=== PATIENT | female | born 1945 | race Caucasian/White ===

== ENCOUNTER 2017-12-03 13:30 | Inpatient (IN) | payer MEDICARE ==
[2017-12-04] MEDS ORDERED: VANCOMYCIN HCL 1,000 MG in DEXTROSE 5 % IN WATER 250 ML IVPB ONE ×2 (12:30)
[2017-12-04] MEDS ORDERED: FAMOTIDINE 20MG TABLET PO ONE (12:30)
[2017-12-04] MEDS ORDERED: METOCLOPRAMIDE 10 MG TABLET PO ONE (12:30)
[2017-12-04] MEDS ORDERED: ACETAMINOPHEN 1,000 MG/100 ML BTL IV ONE (12:30)
[2017-12-04] MEDS ORDERED: MECLIZINE 25 MG TABLET PO ONE (12:30)
[2017-12-04] MEDS ORDERED: CELECOXIB 100 MG CAPSULE PO ONE (12:30)
[2017-12-14] MEDS ORDERED: MECLIZINE 25 MG TABLET PO ONE (06:00)
[2017-12-14] MEDS ORDERED: FAMOTIDINE 20MG TABLET PO ONE (06:00)
[2017-12-14] MEDS ORDERED: VANCOMYCIN HCL 1,000 MG in DEXTROSE 5 % IN WATER 250 ML IVPB ONE ×2 (06:00)
[2017-12-14] MEDS ORDERED: METOCLOPRAMIDE 10 MG TABLET PO ONE (06:00)
[2017-12-14] MEDS ORDERED: CELECOXIB 100 MG CAPSULE PO ONE (06:00)
[2017-12-14] MEDS ORDERED: ACETAMINOPHEN 1,000 MG/100 ML BTL IV ONE (06:00)
[2017-12-14 09:18] LABS: ABO GROUP O; ANTIBODY SCREEN NEGATIVE (NEGATIVE); RH TYPE POSITIVE
[2017-12-14] MEDS ORDERED: DIPHENHYDRAMINE HCL 25 MG CAPSULE PO PRN (10:03)
[2017-12-14] MEDS ORDERED: AL HYDROX/MAG HYDROX 30ML UD PO PRN (10:03)
[2017-12-14] MEDS ORDERED: TRAMADOL HCL 50 MG TABLET PO PRN ×2 (10:03)
[2017-12-14] MEDS ORDERED: PROMETHAZINE HCL 12.5 MG in 0.9 % SODIUM CHLORIDE 100ML 50 ML IVPB PRN (10:03)
[2017-12-14] MEDS ORDERED: HYDROMORPHONE HCL 2 MG/ML VIAL IM PRN ×2 (10:03)
[2017-12-14] MEDS ORDERED: METOCLOPRAMIDE HCL 10 MG/2 ML VIAL IVP PRN (10:03)
[2017-12-14] MEDS ORDERED: HYDROCODONE/APAP 7.5/325MG TABLET PO PRN (10:03)
[2017-12-14] MEDS ORDERED: ACETAMINOPHEN W/ CODEINE 300MG/30MG TABLET PO PRN ×2 (10:03)
[2017-12-14] MEDS ORDERED: ACETAMINOPHEN 325 MG TAB PO PRN (10:03)
[2017-12-14] MEDS ORDERED: ONDANSETRON HCL IV 4 MG/2 ML VIAL IVP PRN (10:03)
[2017-12-14] MEDS ORDERED: HYDROCODONE/APAP 5/325MG TABLET PO PRN ×2 (10:03)
[2017-12-14] MEDS ORDERED: ACETAMINOPHEN W/ CODEINE 300MG/60MG TABLET PO PRN ×2 (10:03)
[2017-12-14] MEDS ORDERED: ZOLPIDEM TARTRATE 5 MG TABLET PO PRN (10:03)
[2017-12-14] MEDS ORDERED: NALOXONE 0.4 MG/1 ML VIAL IVP PRN (10:03)
[2017-12-14] MEDS ORDERED: MAGNESIUM HYDROXIDE 30 ML UDC PO PRN (10:03)
[2017-12-14] MEDS ORDERED: BISACODYL 10 MG SUPP RC PRN (10:03)
[2017-12-14] MEDS ORDERED: KETOROLAC 30 MG/ML VIAL IVP PRN ×2 (10:03)
[2017-12-14] MEDS ORDERED: BUPIVACAINE 0.5% W/EPI MPF 30 ML VIAL IVP ONE (14:00)
[2017-12-14] MEDS ORDERED: MIDAZOLAM HCL 2MG/2ML VIAL IV ONE (14:00)
[2017-12-14] MEDS ORDERED: GLYCOPYRROLATE 0.2 MG/ML ML IV ONE (14:00)
[2017-12-14] MEDS ORDERED: ONDANSETRON HCL IV 4 MG/2 ML VIAL IVP ONE ×2 (14:00→18:00)
[2017-12-14] MEDS ORDERED: BUPIVACAINE LIPOSOME 266MG/20ML VIAL IV ONE (14:00)
[2017-12-14] MEDS ORDERED: HYDROMORPHONE PF 1MG/ML **AMPULE IV ONE ×2 (14:00)
[2017-12-14] MEDS ORDERED: TRANEXAMIC ACID 1,000 MG/10 ML ML IV ONE ×2 (14:00)
[2017-12-14] MEDS ORDERED: FENTANYL PF 100MCG/2ML VIAL IV ONE (14:00)
[2017-12-14] MEDS ORDERED: PROPOFOL 10 MG/ML VIAL IV ONE (14:00)
[2017-12-14] MEDS ORDERED: VANCOMYCIN HCL 1 GM VIAL IVPB ONE ×2 (14:00)
--- NOTE | 2017-12-14 16:17 | Rehab Evaluation ---
Patient Information - Patient Information Diagnosis: L hip OA Ordered Treatment: PT Evaluate and Treat Status: Initial Evaluation Surgery: Yes (L THR) Date of Surgery: 12/14/17 Past Medical/Surgical Hx: PAST MEDICAL/SURGICAL HISTORY Past Surgical History Bilat knee replacement tonsils PMH - Respiratory Hx Respiratory Disorders Yes Hx Bronchitis Yes: July 2017 Hx Pneumonia Yes Hx of SOB Yes: with stairs PMH - Cardiovascular Hx Cardiovascular Disorders Yes Hx Hypertension Yes: on meds good control Exercise Tolerance Fair Comment: uses cane PMH - Neuro Hx Neurological Disorders Yes Hx Dizziness Yes: occassionally when turning fast PMH - GI Hx Gastrointestinal Disorders No PMH - Hx Genitourinary Disorders No Hx Age of Menopause 44 PMH - Endocrine Hx Endocrine Disorders No PMH - Musculoskeletal Hx Musculoskeletal Disorders Yes Hx Arthritis Yes: RA and OA PMH - Psych Hx Psychiatric Problems No PMH - Hematology/Oncology Hx Hematology/Oncology Yes Disorders Hx Unexplained Bleeding Yes: nose bleed 6 weeks ago saw ENT no cautery needed Premorbid Status: Detail (The patient was independent with all mobility.) Social History: Detail (The patient lives in a one story home with spouse with 1 step at the enterance and no railing. The patient's bathroom is equipped with a tub/shower combination with a shower seat and grab bars and an elevated toilet. The patient has a 4 wheeled walker and a standard cane.) Precautions: [place], Fall, Other (THR precautions- patient required verbal cues to remember.) - Time With Patient Total Time Spent With Patient (Min): 30 Treatment Procedures: Detail (Initial evaluation) Subjective Information - Subjective Information Per Patient (The patient had no complaints of pain. The patient had complaints of lightheadedness with ambulation.) Objective Data - Mental Status Patient Orientation: Oriented x3 - Visual Perception Appears within normal limits for therapeutic activities - ROM Not within normal limits (The patient's L LE AROM was within total hip precautions.) - Strength/Tone Not within normal limits (The patient's R LE strength was WFL. The patient's L LE strength was not tested secondary to status post surgery, however the patient 's strength is functional ie: the patient was able to lift LE's out of bed.) - Bed Mobility Independent (Independent with supine to and from sit transfer.) - Transfers Independent (The patient is independent with sit to and from stand transfer.) - Balance Balance Sitting: Good Balance Standing: Fair (The patient required walker for support.) - Sensation Intact - Gait Detail (The patient ambulated with 4 wheeled walker, WBAT on the L LE with CG for safety due to symptoms of feeling lightheaded, a distance of 26 feet x 2.) Therapy Assessment - Therapy Assessment Detail (The patient was independent with bed mobility and transfers with contact guarding with ambulation due to symptoms of feeling lightheaded. Feel patient will progress well with mobility.) Patient Education - Patient Education Teaching Topic: Precautions (THR precautions) Response: Reinforcement Needed Teaching Method: Discussion Teaching Recipient: Patient Barriers To Learning: Age Related Problem List - Problem List Physical Therapy Problem List: Detail (1) Decreased L LE strength as to be expected following surgery. 2) Non ambulatory on stairs. 3) CG for safety with ambulation with 4 wheeled walker.) Goals - Goals Physical Therapy Goals: 1) The patient will be independent with THR precautions and HEP. 2) The patient will ambulate on stairs with supervision for safety 3) The patient will ambulate with 4 wheeled walker independently WBAT on the L LE household distances. Prognosis - Prognosis Good Plan - Plan Physical Therapy Plan: PT 1-2 times a day until inpatient PT goals have been met for gait training, and instruction in a HEP.
[2017-12-14] MEDS: DEXTROSE 5 % AND 0.9 % NACL 1,000 ML IV PRN (16:50)
[2017-12-14] MEDS: POTASSIUM CHLORIDE 20 MEQ TABLET PO SCH ×2 (18:42→21:20)
[2017-12-14] MEDS: HYDROCODONE/APAP 7.5/325MG TABLET PO PRN (19:06)
[2017-12-14] MEDS: VANCOMYCIN HCL 1,000 MG in DEXTROSE 5 % IN WATER 250 ML IVPB SCH ×2 (21:15)
[2017-12-14] MEDS: DOCUSATE SODIUM 100 MG CAPSULE PO SCH (21:20)
[2017-12-14] MEDS: FERROUS SULFATE 325 MG TAB PO SCH (21:20)
--- NOTE | 2017-12-14 21:44 | Operative Note ---
DATE OF SURGERY: 12/14/2017 PREOPERATIVE DIAGNOSIS: End-stage left hip arthrosis. POSTOPERATIVE DIAGNOSIS: End-stage left hip arthrosis. OPERATION: Left total hip arthroplasty. SURGEON: Danny Sharp M.D. ANESTHESIA: Spinal. BLOOD LOSS: 200 mL. OPERATIVE FINDINGS: Severe [id number] hip arthrosis. COMPONENTS PLACED: 2 gram Vancomycin, Cohen [employer] Nephew cemented Synergy total hip arthroplasty system size 12 high offset collared femoral component, a 32 +0 mm Oxinium femoral head component, and a 50 mm three-hole reflection acetabular shell component with two screw caps and a centrally threaded screw cap and a 35 degree high crosslinked polyethylene liner. INDICATIONS FOR OPERATION: This is a 72-year-old female who has had persistent pain and dysfunction in her hip for several years. She failed nonoperative treatment and is scheduled for a total hip arthroplasty. I explained all the risks and benefits to her in detail for her diagnosis and procedures including but not limited to; infection, nerve injury, vessel injury, persistent pain, persistent numbness and tingling in her hip, periprosthetic fracture, need for resection arthroplasty should the components become infected or loosened, nerve injury, vessel injury, blood clot, leg length discrepancy, need for anticoagulation, blood clots and risks associated with these medications, and need for further procedures. All of her questions were answered, the rehab and course were outlined and she agreed to proceed. PROCEDURE: The patient was brought to the O.R. and placed in the right lateral decubitus position. The left hip and lower extremity were prepped and draped in a sterile fashion. The left hip was prepped again with ChloraPrep after it was draped. Intraoperative time-out was performed. Next, a posterior approach was marked over the hip. It was re-prepped with ChloraPrep. Skin and subcutaneous tissues were dissected down after it was infiltrated with 0.50% Marcaine with Epinephrine to the gluteal fascia. The gluteal fascia was split longitudinally. Subgluteal plane was bluntly dissected and a self-retainer brought in. I took off the short external rotators. identified the sciatic nerve, tagged them with #2 Vicryl and protected the sciatic nerve at all times. Next, we incised the capsule, released the capsule superiorly and inferiorly. Next, the femoral head was devoid of any articular cartilage. It was severely arthritis. We then resected the femoral head about 1 cm above the lesser trochanter. We inserted the boxed osteotome, inserted the reamers and reamed to size 12. Next, we broached to 10, calcar planed then a 11 and then a 12 and had a good fit. Attention was turned to the acetabulum. We released the capsule anteriorly, placed the inferior acetabular retractor and femoral retractor anteriorly and then retracted the femur out of the way and then removed some capsule and labrum around the periphery. We started reaming in 1 mm increments in 45 degrees of inclination and 20 degrees of anteversion until we reamed up to a size 49. We trialed a 50 and had good fit. We changed gloves, irrigated copiously, and packed down the real three-hole shell with a helicopter guide in 45 degrees of inclination, 20 degrees anteversion. Next, we drilled the posterior superior central quadrant screw hole, inserted the screw there and had a good purchase, 40 mm. We then placed the trial liner and did a trial reduction. Best combination of range of motion, stability, and leg lengths was with a high offset 32 +0 mm femoral head component. This allowed for flexion to 90 and internal rotation to 80 before the hip dislocated. Symmetric leg lengths, good abductor tensioning, and stability with extension in external rotation. Next, we removed all trial components, irrigated copiously, inserted the threaded screw cap centrally and inserted the other two screw caps and then impacted down the 35 degree hooded high crosslinked polyethylene liner with the monte in the posterior/superior quadrant. We irrigated the femoral canal. We mixed cement and inserted the cement restrictor. We injected the cement in 3rd generation cement technique. We removed the suction catheter and inserted down the femoral stem in 15 degrees of anteversion until the collar was flush with the medial calcar and removed excess cement and held there until cement hardened. We cleaned the trunnion and impacted down the real femoral head. We re-reduced the hip. Final range of motion revealed the same. We irrigated copiously. We repaired the short external rotators to the abductors using #2 running Vicryl stitch. Irrigated again. We repaired the gluteal fascia with a running #2 Quill after we injected the deep external rotators, gluteus medius, periosteum working from deep to superficially with several sticks of 0.5% Marcaine with Epinephrine, 2 grams of Tranexamic Acid, and Exparel mixture. We then closed the gluteal fascia with running #2 Quill suture and then closed the skin deep with 2-0 Vicryl and then we injected subcutaneous with 0.5% Marcaine with Epinephrine and a sterile WES dressing was applied over the wound only. Post-op x-ray showed good fit and orientation of components. The patient tolerated the procedures well. No intraoperative complications. All sponge, needle and blade counts were correct. Recovery stable, neurovascularly intact. She will be discharged likely tomorrow. Home therapy nurse with [facility] and follow-up in two weeks. cc: Dr. Anna Crow JOB NUMBER: [id number] MTDD
[2017-12-14] MEDS ORDERED: CITALOPRAM 20 MG TABLET PO SCH (22:00)
[2017-12-15] MEDS: DEXTROSE 5 % AND 0.9 % NACL 1,000 ML IV PRN (01:30)
[2017-12-15] MEDS: HYDROCODONE/APAP 7.5/325MG TABLET PO PRN ×3 (01:35→13:02)
[2017-12-15 06:50] LABS: HEMATOCRIT 34.9 % (35.0-47.0); HEMOGLOBIN 10.7 gm/dl (11.6-16.0)
--- NOTE | 2017-12-15 07:23 | RADIOLOGY REPORT ---
EXAM: LEFT HIP HISTORY: POSTOP LEFT SACHI. TECHNIQUE: A single AP view of the left hip was obtained. Comparison: None. FINDINGS: The patient is postop left SACHI. The components appear in good position in the AP projection with no dislocation evident. Some air is seen in the soft tissues presumably postoperative in nature. There is probably a drain in place as well. IMPRESSION: POSTOP LEFT SACHI WITH GOOD ALIGNMENT IN THE AP PROJECTION. JOB NUMBER: [id number] MTDD
[2017-12-15] MEDS: VANCOMYCIN HCL 1,000 MG in DEXTROSE 5 % IN WATER 250 ML IVPB SCH ×2 (08:36)
[2017-12-15] MEDS: DOCUSATE SODIUM 100 MG CAPSULE PO SCH (09:10)
[2017-12-15] MEDS: FERROUS SULFATE 325 MG TAB PO SCH (09:12)
[2017-12-15] MEDS: POTASSIUM CHLORIDE 20 MEQ TABLET PO SCH (09:12)
[2017-12-15] MEDS ORDERED: EZETIMIBE 10 MG TABLET PO SCH (10:00)
[2017-12-15] MEDS ORDERED: METOPROLOL TART 50 MG TABLET PO SCH (10:00)
[2017-12-15] MEDS ORDERED: CELECOXIB 100 MG CAPSULE PO SCH (10:00)
[2017-12-15] MEDS ORDERED: FOLIC ACID 1 MG TABLET PO SCH (10:00)
[2017-12-15] MEDS ORDERED: RIVAROXABAN 10 MG TABLET PO SCH (10:00)
[2017-12-15] MEDS ORDERED: ASCORBIC ACID 500 MG TAB PO SCH (10:00)
[2017-12-15] MEDS ORDERED: VERAPAMIL HCL 180 MG TAB CR PO SCH (10:00)
[2017-12-15] MEDS ORDERED: MULTIVITAMINS/MINERALS TABLET PO SCH (10:00)
[2017-12-15] MEDS ORDERED: XELJANZ 11 MG PO SCH (10:00)
[2017-12-15] MEDS ORDERED: VALSARTAN 80 MG TAB PO SCH (10:00)
--- NOTE | 2017-12-15 10:46 | Physical Therapy Tx Note ---
Physical Therapy Tx Note - Treatment Note Tolerated: Good Total Time Spent With Patient: 30 Physical Therapy Tx Note: Detail (The patient was in bed when PT arrived and stated she had to go to the bathroom. The patient was independent with supine to sit transfer following THR precautions. The patient ambulated to bathroom WBAT on the L LE with verbal cues for proper walker technique. The patient was independent with toilet transfer. The patient requested to get dressed. The patient was independent donning her shirt and bra and required minimal PA putting L LE in pant leg. The patient was independent pulling up her pants. The patient ambulated with 4 wheeled walker 108 feet x 1 and 50 feet x 1 WBAT on the L LE with verbal cues for proper walker technique. The patient's gait pattern improved when she decreased her stride length and placed her hands near the brakes. The patient ambulated on 3 steps with CG/supervision for safety using proper technique. The patient's HEP and THR precautions were reviewed and patient had good understanding of them. The patient's was present during treatment and felt comfortable with patient' supervision/gaurding requirements and proper verbal cues for safe 4 wheeled walker technique. The patient has met PT inpatient goals.) Physical Therapy Problem List: Detail (1) Decreased L LE strength as to be expected following surgery. 2) Non ambulatory on stairs. 3) CG for safety with ambulation with 4 wheeled walker.) Physical Therapy Goals: GOALS MET: 1) The patient will be independent with THR precautions and HEP. 2) The patient will ambulate on stairs with supervision for safety 3) The patient will ambulate with 4 wheeled walker independently WBAT on the L LE household distances. Physical Therapy Plan: All inpatient PT goals have been met. The patient is to continue with Home Health PT upon discharge from [facility].
--- NOTE | 2017-12-15 12:20 | Rehab Evaluation ---
Patient Information - Patient Information Diagnosis: L hip OA Ordered Treatment: OT Evaluate and Treat Status: Initial Evaluation Surgery: Yes (L THR) Date of Surgery: 12/14/17 Past Medical/Surgical Hx: PAST MEDICAL/SURGICAL HISTORY Past Surgical History Bilat knee replacement tonsils PMH - Respiratory Hx Respiratory Disorders Yes Hx Bronchitis Yes: July 2017 Hx Pneumonia Yes Hx of SOB Yes: with stairs PMH - Cardiovascular Hx Cardiovascular Disorders Yes Hx Hypertension Yes: on meds good control Exercise Tolerance Fair Comment: uses cane PMH - Neuro Hx Neurological Disorders Yes Hx Dizziness Yes: occassionally when turning fast PMH - GI Hx Gastrointestinal Disorders No PMH - Hx Genitourinary Disorders No Hx Age of Menopause 44 PMH - Endocrine Hx Endocrine Disorders No PMH - Musculoskeletal Hx Musculoskeletal Disorders Yes Hx Arthritis Yes: RA and OA PMH - Psych Hx Psychiatric Problems No PMH - Hematology/Oncology Hx Hematology/Oncology Yes Disorders Hx Unexplained Bleeding Yes: nose bleed 6 weeks ago saw ENT no cautery needed Premorbid Status: Detail (The patient was modified Ind. with all mobility, with use of standard cane. Pt was Ind. with all I/ADL tasks (i.e. driving, grocery shopping, meal prep, self-care, etc.), except completed laundry (d/t located in basement).) Social History: Detail (The patient lives in a one story home with spouse with 1 step at the enterance and no railing. The patient's bathroom is equipped with a tub/shower combination with a shower seat (all 4 legs in shower), stool outside shower to assist safety of transfering in/out of shower, grab bars, fixed shower head, and an elevated toilet. The patient has a 4 wheeled walker and a standard cane. Pt and are both retired and is available to assist if needed.) Precautions: [place], Fall, Other (total hip precautions- patient required verbal cues to remember.) - Time With Patient Total Time Spent With Patient (Min): 45 Treatment Procedures: Detail (Student Dianne Varma assisted under supervision of OTRL. Upon arrival, pt. was lying half in bed, with RLE resting on walker ( without breaks on). Educ. was provided that is not a safe position, and violates hip precautions.) Subjective Information - Subjective Information Per Patient (Pt stated she is right handed.) Objective Data - Pain Pain Present: Yes (5/10 at rest) Pain Scale Used: Numeric (1 - 10) - Mental Status Patient Orientation: Oriented x3 (Pt. presented with STM deficits (i.e. required repetition), disorientation (i.e. tried putting sock on foot that was already dressed), and impulsivity, which reported is not typical functioning and suspects d/t medication side effects.) - Visual Perception Appears within normal limits for therapeutic activities - ROM Within normal limits (BUE joints WNL except B shoulder flexion and abd: decreased about 5-10 degrees (but no function impaired). LUE (wrist/forearm) edema noted.) - Strength/Tone Within normal limits (MMT: L shoulder flexion 3+/5, L shoulder abd 4-/5 and R shoulder flexion 4+/5, R shoulder abd 4/5. B Elbow flex/ext 5/5.) - Coordination Appears within normal limits for therapeutic activities - Bed Mobility Independent (Supine<> sit EOB modified Ind. with head of bed raised.) - Transfers Independent (Education provided to pt regarding sit<>stand technique to adhere to hip precautions and for hand placement to reduce fall risk (i.e. walker tipping). Sit EOB<>stand modified Ind. with 4WW.) - Balance Balance Sitting: Good Balance Standing: Fair (Requires walker for safety) - Sensation Intact (Light touch B finger tips) - ADL's/IADL's Detail (Education provided to pt and regarding AE and adaptive LB dressing techniques with application of hip precautions. Pt returned demonstration on donning/doffing sock on LLE with AE and verbalized understanding for all other LB dressing. Pt required min VC to adhere to hip precautions throughout ADL tasks.) Therapy Assessment - Therapy Assessment Detail (Pt. does not require in-pt. OT services at this time. Pt. may benefit from an in-home OT evaluation to maximize safety and Ind. with I/ADL's, reduce fall risk, and advisement of potential environmental modifications. Pt. demo. mild cognitive deficits at this time (possibly d/t medication side effects), and required VC's to comply with hip precautions. Pt. has a positive support system, with assistance if needed during recovery period. Educ. was provided in use of hip kit AE, and is highly recommended that pt. obtain at least a life agent to comply with hip precautions. Pt. declined to purchase at this time, and stated she would obtain a life agent elsewhere. She does not currently have any AE at home. During OT eval, pt's 4WW broke (ball bearings came out of wheel, which created a safety issue). embedded case manager was contacted for potential resources, and will discuss options with pt. Pt's current 4WW is not safe to use.) Patient Education - Patient Education Teaching Topic: Equipment Use, Precautions Response: Return Demonstration, Verbalize Understanding Teaching Method: Discussion, Demonstration Teaching Recipient: Patient, Family () Barriers To Learning: Other (unsure how much pt. will be able to recall d/t cognitive presentation (potential side effects of medications)) Problem List - Problem List Physical Therapy Problem List: Detail (1) Decreased L LE strength as to be expected following surgery. 2) Non ambulatory on stairs. 3) CG for safety with ambulation with 4 wheeled walker.) Goals - Goals Physical Therapy Goals: GOALS MET: 1) The patient will be independent with THR precautions and HEP. 2) The patient will ambulate on stairs with supervision for safety 3) The patient will ambulate with 4 wheeled walker independently WBAT on the L LE household distances. Prognosis - Prognosis Good (If pt continues to adhere to hip precautions for designated time frame.) Plan - Plan Physical Therapy Plan: All inpatient PT goals have been met. The patient is to continue with Home Health PT upon discharge from [facility]. Occupational Therapy Plan: D/C from in-patient OT services. Educ. was provided to call rehab dept. if Q's arise after returning home.
== END 2017-12-15 13:20 | disposition home health service (06) | DRG 470 ==
LOC: MEDSURG 12-14 08:24
PROVIDERS: ADMIT Orthopaedic Surgery; ATTEND Orthopaedic Surgery
PROC: 0SRB069 Replacement of Left Hip Joint with Oxidized Zirconium on Polyethylene Synthetic Substitute, Cemented, Open Approach (ICD-10-PCS; principal; 2017-12-14 10:30)
DX: M16.12 Unilateral primary osteoarthritis, left hip (principal); I10 Essential (primary) hypertension; E78.00 Pure hypercholesterolemia, unspecified; M06.9 Rheumatoid arthritis, unspecified
CPT/HCPCS: 85014; 85018; 86850; 86900; 86901; 97116; J1170; J2405; J7042; J7060